=== PATIENT | female | born 2000 | race Caucasian/White ===

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

== ENCOUNTER 2022-02-03 23:44 | Emergency (ER) | payer BC ==
[~2022-02-03] VITALS: Ht 154.9 cm; Wt 51.5 kg
[2022-02-03 23:44] VITALS: BP 112/69
[2022-02-04] MEDS ORDERED: ACETAMINOPHEN TAB 650MG DOSE (2X325MG) PO ONE (01:15)
[2022-02-04] MEDS ORDERED: ONDANSETRON 4MG/2ML VIAL IV ONE (01:15)
[2022-02-04] MEDS ORDERED: NS 1,000 ML IV ONE (01:15)
[2022-02-04] MEDS ORDERED: KETOROLAC 30 MG/ML 1ML VIAL IV ONE (01:15)
[2022-02-04 01:39] LABS: BASO % 0.2 % (0.0-1.0); EOS # 0.1 10^3/uL (0.0-0.5); EOS % 0.9 % (0.0-3.0); HEMATOCRIT 36.9 % (36.0-47.0); LYMPH # 1.6 10^3/uL (1.5-5.0); LYMPH % 24.4 % (24.0-44.0); MEAN CORPUSCULAR HEMOGLOBIN 30.1 pg (27.0-33.0); MEAN CORPUSCULAR HGB CONC 32.5 g/dl (32.0-36.5); MEAN CORPUSCULAR VOLUME 92.5 fl (80.0-96.0); MONO # 0.6 10^3/uL (0.0-0.8); MONO % 9.1 % (2.0-8.0); NEUTROPHILS # 4.2 10^3/uL (1.5-8.5); NEUTROPHILS % 64.9 % (36.0-66.0); PLATELET COUNT, AUTOMATED 245 10^3/uL (150-450); RED BLOOD COUNT 3.99 10^6/uL (4.00-5.40); WHITE BLOOD COUNT 6.4 10^3/uL (4.0-10.0)
[2022-02-04 01:45] LABS: RSV AMPLIFICATION NEGATIVE (NEGATIVE)
[2022-02-04] MEDS ORDERED: ONDA4TAB6 PO (02:11)
== END 2022-02-04 06:23 | disposition home or self-care (01) ==
LOC: M ED 23:44
DX: J06.9 Acute upper respiratory infection, unspecified (principal); R09.81 Nasal congestion; R51.9 Headache, unspecified; Z88.1 Allergy status to other antibiotic agents
CPT/HCPCS: 71046; 80047; 84702; 85025; 87631; 96374; 99283; J1885; J2405

== ENCOUNTER 2022-06-21 22:56 | Emergency (ER) | payer BC ==
[~2022-06-21] VITALS: Ht 157.5 cm; Wt 49.6 kg
[~2022-06-21 22:56] MED LIST changes: -PYRI1TAB5 PO
[2022-06-21] MEDS ORDERED: PYRI1TAB5 PO (23:02)
[2022-06-22 02:47] LABS: GC DNA AMPLIFICATION NEGATIVE (NEGATIVE)
[2022-06-22 04:02] VITALS: BP 114/68
== END 2022-06-22 04:21 | disposition left against medical advice (07) ==
LOC: M ED 06-22 04:16
DX: Z53.21 Procedure and treatment not carried out due to patient leaving prior to being seen by health care provider (principal)

== ENCOUNTER → 2022-06-21 | Outpatient (REF) | payer BC ==
[~2022-06-21] MED LIST changes: +ALBU2.5V10 INH; -ALBU83IN INH; +ONDA4TAB6 PO; +PYRI1TAB5 PO
== END ==
LOC: M WUC 19:34
PROVIDERS: ATTEND Physician Assistant
DX: R30.0 Dysuria (principal)

== ENCOUNTER → 2022-09-03 | Outpatient (REF) | payer BC ==
[~2022-09-03] MED LIST changes: +PYRI1TAB5 PO
[2022-09-03 19:50] LABS: FREE T4 1.09 NG/DL (0.83-1.43); THYROID STIMULATING HORMONE 5.071 uIU/ML (0.48-4.17)
== END ==
LOC: M SFHCCAPE 10:47
PROVIDERS: ATTEND Physician Assistant
DX: E03.9 Hypothyroidism, unspecified (principal)

== ENCOUNTER 2022-11-20 16:21 | Emergency (ER) | payer BC ==
[~2022-11-20] VITALS: Ht 157.5 cm; Wt 51.7 kg
[~2022-11-20 16:21] MED LIST changes: -ESCITALOPRAM; -VENTAER INH
[2022-11-20] MEDS ORDERED: ESCITALOPRAM (16:35)
[2022-11-20] MEDS ORDERED: ONDANSETRON 4MG 2ML VIAL IV ONE (17:15)
[2022-11-20] MEDS ORDERED: IBUPROFEN 600MG TAB PO ONE (17:15)
[2022-11-20] MEDS ORDERED: NS 1,000 ML IV ONE (17:15)
[2022-11-20 18:08] LABS: BASO % 0.2 % (0.0-1.0); EOS % 0.4 % (0.0-3.0); HEMATOCRIT 36.9 % (36.0-47.0); HEMOGLOBIN 11.8 g/dl (12.0-15.5); LYMPH # 0.3 10^3/uL (1.5-5.0); LYMPH % 6.9 % (24.0-44.0); MEAN CORPUSCULAR HEMOGLOBIN 28.9 pg (27.0-33.0); MEAN CORPUSCULAR VOLUME 90.4 fl (80.0-96.0); MONO # 0.4 10^3/uL (0.0-0.8); MONO % 8.6 % (2.0-8.0); NEUTROPHILS # 4.1 10^3/uL (1.5-8.5); NEUTROPHILS % 83.1 % (36.0-66.0); PLATELET COUNT, AUTOMATED 219 10^3/uL (150-450); RED BLOOD COUNT 4.08 10^6/uL (4.00-5.40); WHITE BLOOD COUNT 4.9 10^3/uL (4.0-10.0)
[2022-11-20 18:59] VITALS: BP 96/54
[2022-11-20] MEDS ORDERED: VENTAER INH (19:19)
[2022-11-20] MEDS ORDERED: ONDA4TAB6 PO (19:19)
== END 2022-11-20 19:25 | disposition home or self-care (01) ==
LOC: M ED 16:21
DX: U07.1 COVID-19 (principal); E03.9 Hypothyroidism, unspecified; Z88.1 Allergy status to other antibiotic agents; Z88.8 Allergy status to other drugs, medicaments and biological substances; Z97.5 Presence of (intrauterine) contraceptive device; Z79.52 Long term (current) use of systemic steroids; Z79.899 Other long term (current) drug therapy
CPT/HCPCS: 71046; 80047; 84702; 85025; 96374; 99284; J2405

== ENCOUNTER → 2022-11-20 | Outpatient (REF) ==
[~2022-11-20] MED LIST changes: +ESCITALOPRAM; +VENTAER INH
== END ==
LOC: M LABSMTC 11:17
PROVIDERS: ATTEND Family Medicine
DX: Z11.52 Encounter for screening for COVID-19 (principal)

== ENCOUNTER → 2023-07-22 | Outpatient (REF) | payer BC ==
[~2023-07-22] MED LIST changes: +ESCITALOPRAM; +VENTAER INH
[2023-07-22 20:24] LABS: GC DNA AMPLIFICATION NEGATIVE (NEGATIVE)
== END ==
LOC: M LAB REF 16:06
PROVIDERS: ATTEND Nurse Practitioner Family
DX: Z11.3 Encounter for screening for infections with a predominantly sexual mode of transmission (principal); R30.0 Dysuria; N76.0 Acute vaginitis

== ENCOUNTER → 2023-10-28 | Outpatient (REF) | payer BC ==
[2023-10-28 17:56] LABS: THYROID STIMULATING HORMONE 1.945 uIU/ML (0.55-4.78); TOTAL 25(OH) VITAMIN D 18.1 NG/ML (20.0-100.0)
[2023-10-28 17:57] LABS: FREE T4 1.02 NG/DL (0.89-1.76)
== END ==
LOC: M SFHCCAPE 13:48
PROVIDERS: ATTEND Physician Assistant Medical
DX: E03.9 Hypothyroidism, unspecified (principal); E55.9 Vitamin D deficiency, unspecified

== ENCOUNTER → 2023-11-04 | Outpatient (REF) | payer BC ==
[~2023-11-04] MED LIST changes: +BACTDSTA; +LEVO25TA5; +METR-265 PO; +SERT50TA29
== END ==
LOC: M SFHCCAPE 15:48
PROVIDERS: ATTEND Physician Assistant Medical
DX: R30.0 Dysuria (principal)

== ENCOUNTER 2023-11-08 02:51 | Emergency (ER) | payer BC ==
[~2023-11-08] VITALS: Ht 157.5 cm; Wt 54.4 kg
[~2023-11-08 02:51] MED LIST changes: -BACTDSTA; -LEVO25TA5; -METR-265 PO; -SERT50TA29
[2023-11-08] MEDS ORDERED: LEVO25TA5 (02:59)
[2023-11-08] MEDS ORDERED: SERT50TA29 (02:59)
[2023-11-08] MEDS ORDERED: BACTDSTA (02:59)
[2023-11-08 03:55] LABS: RSV AMPLIFICATION NEGATIVE (NEGATIVE)
[2023-11-08] MEDS ORDERED: ONDANSETRON 4MG ORAL DISINTEGRATING TAB PO ONE (06:35)
[2023-11-08] MEDS ORDERED: IBUPROFEN 600MG TAB PO ONE (06:35)
[2023-11-08 07:16] LABS: BASO % 0.4 % (0.0-1.0); EOS # 0.1 10^3/uL (0.0-0.5); EOS % 1.2 % (0.0-3.0); HEMATOCRIT 38.3 % (36.0-47.0); HEMOGLOBIN 12.7 g/dl (12.0-15.5); LYMPH # 0.7 10^3/uL (1.5-5.0); LYMPH % 8.7 % (24.0-44.0); MEAN CORPUSCULAR HEMOGLOBIN 30.3 pg (27.0-33.0); MEAN CORPUSCULAR HGB CONC 33.2 g/dl (32.0-36.5); MEAN CORPUSCULAR VOLUME 91.4 fl (80.0-96.0); MONO # 0.3 10^3/uL (0.0-0.8); MONO % 4.2 % (2.0-8.0); NEUTROPHILS # 6.9 10^3/uL (1.5-8.5); NEUTROPHILS % 84.8 % (36.0-66.0); PLATELET COUNT, AUTOMATED 248 10^3/uL (150-450); RED BLOOD COUNT 4.19 10^6/uL (4.00-5.40); WHITE BLOOD COUNT 8.1 10^3/uL (4.0-10.0)
[2023-11-08 07:40] LABS: BLOOD UREA NITROGEN 9 MG/DL (9-23); CALCIUM LEVEL 8.9 MG/DL (8.5-10.1); CARBON DIOXIDE LEVEL 29 MMOL/L (20-31); CHLORIDE LEVEL 106 MMOL/L (98-107); GLOMERULAR FILTRATION RATE > 60.0 (>60); GLUCOSE, FASTING 88 MG/DL (60-100); POTASSIUM SERUM 3.9 MMOL/L (3.5-5.1); SODIUM LEVEL 140 MMOL/L (136-145)
[2023-11-08 07:42] LABS: HCG, SERUM QUALITATIVE NEGATIVE (NEGATIVE)
[2023-11-08 10:05] LABS: CHLAMYDIA DNA AMPLIFICATION NEGATIVE (NEGATIVE); GC DNA AMPLIFICATION NEGATIVE (NEGATIVE)
[2023-11-08] MEDS ORDERED: METR-265 PO (10:10)
[2023-11-08 10:12] VITALS: BP 109/64; TEMP 97; O2SAT 99
== END 2023-11-08 10:17 | disposition home or self-care (01) ==
LOC: M ED 02:51
DX: N76.0 Acute vaginitis (principal); F41.9 Anxiety disorder, unspecified; F32.A Depression, unspecified; Z79.890 Hormone replacement therapy; Z79.52 Long term (current) use of systemic steroids

== ENCOUNTER 2025-02-03 05:38 | Emergency (ER) | payer BC ==
[~2025-02-03] VITALS: Ht 157.5 cm; Wt 50.1 kg
[~2025-02-03 05:38] MED LIST changes: +BACTDSTA; +LEVO25TA5; +METR-265 PO; +ONDA-282 PO; -ONDA4TAB6 PO; +SERT50TA29
[2025-02-03 07:41] VITALS: BP 103/66; TEMP 97.8; O2SAT 100
[2025-02-03] MEDS ORDERED: NOXI1TAB PO (07:46)
== END 2025-02-03 08:20 | disposition home or self-care (01) ==
LOC: M ED 05:38
DX: T28.0XXA Burn of mouth and pharynx, initial encounter (principal); Z88.1 Allergy status to other antibiotic agents; Z79.899 Other long term (current) drug therapy

== ENCOUNTER → 2025-05-04 | Outpatient (REF) | payer BC ==
[~2025-05-04] MED LIST changes: +NOXI1TAB PO
== END ==
LOC: M LAB REF 17:12
PROVIDERS: ATTEND Student in an Organized Health Care Education/Training Program
DX: R30.0 Dysuria (principal)

== ENCOUNTER → 2025-05-29 | Outpatient (REF) | payer BC ==
[2025-06-01 12:28] LABS: RUBEOLA IgG ANTIBODY > 300.00 AU/mL (>16.49)
== END ==
LOC: M SFHCCAPE 13:31
PROVIDERS: ATTEND Physician Assistant Medical
DX: Z01.84 Encounter for antibody response examination (principal)